=== PATIENT | female | born 1995 | race African-American/Black ===

== ENCOUNTER 2017-02-17 19:50 | Emergency (ER) | payer MEDICAID ==
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
[2017-02-17] MEDS ORDERED: Bacitracin Oint 1 GM U/D Packet TOP ONE (20:46)
[2017-02-17 22:44] VITALS: BP 135/82
--- NOTE | 2017-02-18 12:33 | CT ---
EXAM DATE: 02/17/17 PATIENT'S AGE: 21 Patient: ODIN BEEBE Facility: [place], [place] Site . Site : 1995 Study: CT Facial [id number]/8/2017 8:54:32 PM Ordering Physician: Vineet Silva Final Report: INDICATION: injury Technique: Unenhanced maxillofacial CT with reformatted coronals and sagittal images. Comparison: None Findings: The bone mineralization is unremarkable. Minimally depressed comminuted nasal bone fracture. Scattered opacification of the paranasal sinuses. The mastoid air cells are clear. The ostiomeatal units are occluded. The temporomandibular joints are unremarkable bilaterally. The globes and orbits are unremarkable. Impression: Minimally depressed comminuted nasal bone fracture. Dictated by: Naldo Flores MD @ 02/17/2017 21:20:02 (Electronic Signature) Report Signed by Proxy. MARU
--- NOTE | 2017-02-18 12:34 | CR ---
EXAM DATE: 02/17/17 PATIENT'S AGE: 21 Patient: ODIN BEEBE Facility: [place], [place] Site . Site : 1995 Study: XRay Extremity hand [id number]/8/2017 9:13:30 PM Ordering Physician: Vineet Silva Final Report: INDICATION: Right hand Injury. No additional clinical signs or symptoms. TECHNIQUE: Right Hand radiograph 3 views COMPARISON: None FINDINGS: Bones: Alignment is normal. No acute fractures or aggressive osseous lesions seen. Joint spaces: The carpal and metacarpal-phalangeal joints are unremarkable in appearance. The interphalangeal joints are normal in appearance. Soft tissues: Unremarkable. No radiopaque foreign bodies are noted. IMPRESSION: 1. No acute osseous injuries are identified. Dictated by Wilfrid Mike MD @ 02/17/2017 9:37:12 PM Dictated by: Wilfrid Mike MD @ 02/17/2017 21:37:18 (Electronic Signature) Report Signed by Proxy. MARU
--- NOTE | 2017-02-18 12:35 | CR ---
EXAM DATE: 02/17/17 PATIENT'S AGE: 21 Patient: ODNI BEEBE Facility: [place], [place] Site . Site : 1997 Study: XRay Extremity wrist [id number]/8/2017 9:13:47 PM Ordering Physician: Vineet Silva Final Report: INDICATION: Right wrist injury. TECHNIQUE: Wrist radiograph 5 views COMPARISON: None FINDINGS: Bones: There is normal alignment of the osseous structures with preservation of the carpal rows. No acute fractures or aggressive bone lesions are identified. Joint spaces: The radiocarpal, carpal, and carpometacarpal joints are unremarkable in appearance. Soft tissues: Unremarkable. No radiopaque foreign bodies are noted. IMPRESSION: 1. Negative right wrist series. Dictated by Wilfrid Mike MD @ 02/17/2017 9:38:46 PM Dictated by: Wilfrid Mike MD @ 02/17/2017 21:38:52 (Electronic Signature) Report Signed by Proxy. [facility] HOSPITALZenaida
== END 2017-02-17 22:25 | disposition home or self-care (01) ==
LOC: MW.ED 19:50
DX: S02.2XXA Fracture of nasal bones, initial encounter for closed fracture (principal); S50.312A Abrasion of left elbow, initial encounter; S80.212A Abrasion, left knee, initial encounter; S09.93XA Unspecified injury of face, initial encounter; T14.8 Other injury of unspecified body region; R04.0 Epistaxis; Y04.0XXA Assault by unarmed brawl or fight, initial encounter
CPT/HCPCS: 70486; 73110; 73130; 99284; A4566; 99283

== ENCOUNTER 2018-02-07 10:43 | Emergency (ER) | payer MEDICAID ==
[2018-02-07] MEDS ORDERED: Proparacaine 0.5% Ophth Soln 15 ML Bottle EYELF ONE (11:01)
[2018-02-07 11:10] VITALS: BP 112/67
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
== END 2018-02-07 11:45 | disposition home or self-care (01) ==
LOC: MW.ED 10:43
DX: S05.02XA Injury of conjunctiva and corneal abrasion without foreign body, left eye, initial encounter (principal); W45.8XXA Other foreign body or object entering through skin, initial encounter; F17.210 Nicotine dependence, cigarettes, uncomplicated
CPT/HCPCS: 99283

== ENCOUNTER 2018-12-26 12:53 | Emergency (ER) | payer OTHER, SELFPAY ==
[2018-12-26] MEDS ORDERED: Lidocaine 2% Viscous Solution 15 ML Cup PO ONE (13:15)
[2018-12-26] MEDS ORDERED: Benzocaine 20% Topical Spray UD MUCMEM ONE (13:15)
--- NOTE | 2018-12-26 13:15 | EDM.PDOC ---
ED HPI GENERAL MEDICAL PROBLEM - General Chief Complaint: ENT Problem Stated Complaint: TOOTH ACHE Time Seen by Provider: 12/26/18 12:55 Source of Information: Reports: Patient History Limitations: Reports: No Limitations - History of Present Illness INITIAL COMMENTS - FREE TEXT/NARRATIVE: HISTORY AND PHYSICAL: History of present illness: Patient is a 23-year-old female who presents to the emergency room with complaints of right posterior dental pain. She said she has had this intermittently over the past 2 years. Over the past couple days the pain has flared up and has tenderness to the gumline which radiates to the jaw. She denies any fever, chills, chest pain, shortness of breath or cough. Denies any GI or symptoms. She has been able to eat and drink appropriately. Review of systems: As per history of present illness and below otherwise all systems reviewed and negative. Past medical history: As per history of present illness and as reviewed below otherwise noncontributory. Surgical history: As per history of present illness and as reviewed below otherwise noncontributory. Social history: See social history for further information Family history: As per history of present illness and as reviewed below otherwise noncontributory. Physical exam: General: Well-developed and well-nourished 23-year-old -[place] female. Alert and oriented. Nontoxic appearing and in no acute distress. HEENT: Atraumatic, normocephalic, pupils equal and reactive bilaterally, negative for conjunctival pallor or scleral icterus, mucous membranes moist, TMs normal bilaterally, throat clear, patient has dental decay at #30 and 31 with mild erythema, neck supple, nontender, trachea midline. No drooling or trismus noted. No meningeal signs. No hot potato voice noted. Lungs: Clear to auscultation, breath sounds equal bilaterally, chest nontender. Heart: S1S2, regular rate and rhythm without overt murmur Abdomen: Soft, nondistended, nontender. Negative for masses or hepatosplenomegaly. Negative for costovertebral tenderness. Pelvis: Stable nontender. Genitourinary: Deferred. Rectal: Deferred. Skin: Intact, warm, dry. No lesions or rashes noted. Extremities: Atraumatic, negative for cords or calf pain. Neurovascular unremarkable. Neuro: Awake, alert, oriented. Cranial nerves II through XII unremarkable. Cerebellum unremarkable. Motor and sensory unremarkable throughout. Exam nonfocal. Diagnostics: None Therapeutics: Dental Balls Prescription: Augmentin Impression: Dentalgia Dental Decay Plan: 1. Please take the antibiotic as prescribed. 2. Tylenol and/or ibuprofen as needed for pain management. "Tooth Balls" have been given to you; apply along the gumline every 2-3 hours as needed. Do not swallow these; external use only. 3. Follow-up with a dentist for definitive care. Return to the ED as needed and as discussed. Definitive disposition and diagnosis as appropriate pending reevaluation and review of above. Left Jaw Pain Score (Numeric/FACES): 10 - Related Data Allergies Allergy/AdvReac Type Severity Reaction Status Date / Time No Known Allergies Allergy Verified 12/26/18 13:04 Home Meds: Home Meds Ibuprofen 600 mg PO TID PRN 10 Days #30 tablet 09/11/18 [Rx] Amoxicillin/Clavulanate K [Augmentin 875-125 MG] 1 tab PO BID 10 Days #20 tablet 12/26/18 [Rx] Past Medical History HEENT History: Reports: None Cardiovascular History: Reports: None Respiratory History: Reports: None Gastrointestinal History: Reports: None Genitourinary History: Reports: Other (See Below) Other Genitourinary History: Kidney infection Psychiatric History: Reports: None Endocrine/Metabolic History: Reports: None Dermatologic History: Reports: None - Infectious Disease History Infectious Disease History: Reports: None - Past Surgical History HEENT Surgical History: Reports: None Cardiovascular Surgical History: Reports: None Female Surgical History: Reports: None Social & Family History - Family History Family Medical History: Noncontributory Psychiatric: Reports: None - Tobacco Use Smoking Status *Q: Current Some Day Smoker Years of Tobacco use: 1 Packs/Tins Daily: 1 - Caffeine Use Caffeine Use: Reports: Coffee, Soda - Recreational Drug Use Recreational Drug Use: No ED ROS ENT - Review of Systems Review Of Systems: ROS reveals no pertinent complaints other than HPI. ED EXAM, ENT - Physical Exam Exam: See Below (See dictation) Course - Vital Signs Last Recorded V/S: Last Vital Signs Temp 97.6 F 12/26/18 13:05 Pulse 69 12/26/18 13:05 Resp 18 12/26/18 13:05 BP 122/72 12/26/18 13:05 Pulse Ox 98 12/26/18 13:05 - Orders/Labs/Meds Meds: Medications Discontinued Medications Generic Name Dose Route Start Last Admin Trade Name Bryanna PRN Reason Stop Dose Admin Benzocaine 2 each 12/26/18 13:15 Hurricaine One 20% MUCMEM 12/26/18 13:16 ONETIME ONE Lidocaine HCl 15 ml 12/26/18 13:15 Xylocaine 2% Viscous PO 12/26/18 13:16 ONETIME ONE Departure - Departure Time of Disposition: 13:19 Disposition: Home, Self-Care 01 Clinical Impression: Dental decay, Dentalgia - Discharge Information Prescriptions: Amoxicillin/Clavulanate K [Augmentin 875-125 MG] 1 tab PO BID 10 Days #20 tablet Referrals: PCP,None [Primary Care Provider] - Forms: ED Department Discharge Additional Instructions: The following information is given to patients seen in the emergency department who are being discharged to home. This information is to outline your options for follow-up care. We provide all patients seen in our emergency department with a follow-up referral. The need for follow-up, as well as the timing and circumstances, are variable depending upon the specifics of your emergency department visit. If you don't have a primary care physician on staff, we will provide you with a referral. We always advise you to contact your personal physician following an emergency department visit to inform them of the circumstance of the visit and for follow-up with them and/or the need for any referrals to a consulting specialist. The emergency department will also refer you to a specialist when appropriate. This referral assures that you have the opportunity for follow-up care with a specialist. All of these measure are taken in an effort to provide you with optimal care, which includes your follow-up. Under all circumstances we always encourage you to contact your private physician who remains a resource for coordinating your care. When calling for follow-up care, please make the office aware that this follow-up is from your recent emergency room visit. If for any reason you are refused follow-up, please contact the [facility] Emergency Department at and asked to speak to the emergency department charge nurse. [facility] [address] [place] [id number] [facility] [address] [place] [id number] 1. Please take the antibiotic as prescribed. 2. Tylenol and/or ibuprofen as needed for pain management. "Tooth Balls" have been given to you; apply along the gumline every 2-3 hours as needed. Do not swallow these; external use only. 3. Follow-up with a dentist for definitive care. Return to the ED as needed and as discussed.
[2018-12-26 13:33] VITALS: BP 122/70
== END 2018-12-26 13:33 | disposition home or self-care (01) ==
LOC: MW.ED 12:53
DX: K02.9 Dental caries, unspecified (principal); F17.210 Nicotine dependence, cigarettes, uncomplicated
CPT/HCPCS: 99283; A9270

== ENCOUNTER 2018-12-29 13:40 | Emergency (ER) | payer OTHER ==
[2018-12-29] MEDS ORDERED: Sodium Chloride 0.9% 2.5 ML Syringe FLUSH PRN (14:15)
[2018-12-29] MEDS ORDERED: Sodium Chloride 0.9% 10 ML Syringe FLUSH PRN (14:15)
[2018-12-29] MEDS ORDERED: Ketorolac 30 MG/ML SDV IVPUSH ONE (14:17)
--- NOTE | 2018-12-29 14:24 | EDM.PDOC ---
ED HPI GENERAL MEDICAL PROBLEM - General Chief Complaint: General Stated Complaint: COUGH Time Seen by Provider: 12/29/18 13:48 Source of Information: Reports: Patient History Limitations: Reports: No Limitations - History of Present Illness INITIAL COMMENTS - FREE TEXT/NARRATIVE: HISTORY AND PHYSICAL: History of present illness: Patient is a 23-year-old female who presents to the ED today with concerns of cough, sore throat, and abdominal pain. Patient states that for the past 2-3 days she has developed a cough. She states that she was not initially concerned about her cough, assuming it was a typical upper respiratory infection. She states that yesterday she started developing lower abdominal pain that she rates a 9/10 and affected her ability to sleep. She describes the abdominal pain as crampy and comes and goes. She states the pain is worse with movement or pressing on her abdomen. She states she did have her last menstrual cycle 1 week ago and it was normal for her. She states she is not on control and is sexually active. Patient states she has not checked a temperature at home but does feel as if she's had fevers off and on. Patient states she has had several episodes of watery diarrhea. She states her last episode was this morning. Patient denies nausea, vomiting, shortness of breath, difficulties breathing, nasal congestion, ear pain, skin rashes, burning with urination, vaginal discharge, or all other GI, , cardiovascular, or respiratory concerns. Patient does have a history of urinary tract infection but denies any other health history. Review of systems: As per history of present illness and below otherwise all systems reviewed and negative. Past medical history: As per history of present illness and as reviewed below otherwise noncontributory. Surgical history: As per history of present illness and as reviewed below otherwise noncontributory. Social history: See social history for further information Family history: As per history of present illness and as reviewed below otherwise noncontributory. Physical exam: General: Patient is alert, oriented, and in no acute distress. She is laying comfortably on exam table. HEENT: Atraumatic, normocephalic, pupils equal and reactive bilaterally, negative for conjunctival pallor or scleral icterus, mucous membranes moist, TMs normal bilaterally, throat clear, neck supple, nontender, trachea midline. No drooling or trismus noted. No meningeal signs. No hot potato voice noted. Lungs: Clear to auscultation, breath sounds equal bilaterally, chest nontender. Heart: S1S2, regular rate and rhythm without overt murmur Abdomen: Severe tenderness to palpation of the generalized lower abdomen with some guarding. Bowel sounds present throughout all quadrants. Otherwise, soft, nondistended. Negative for masses or hepatosplenomegaly. Negative for costovertebral tenderness. Pelvis: Stable nontender. Genitourinary: Deferred. Rectal: Deferred. Skin: Intact, warm, dry. No lesions or rashes noted. Extremities: Atraumatic, negative for cords or calf pain. Neurovascular unremarkable. Neuro: Awake, alert, oriented. Cranial nerves II through XII unremarkable. Cerebellum unremarkable. Motor and sensory unremarkable throughout. Exam nonfocal. Notes: On exam, patient does have significant tenderness to palpation of the lower abdomen. We'll do lab work and imaging today. Abdomen and pelvis CT shows no acute findings. There is mild patchy infiltrate within the left lung base. A developing pneumonia could not be excluded. Chest x-ray shows no acute cardiopulmonary process. However due to the CT finding of a developing potential pneumonia will treat accordingly this. Rest of labs today are reassuring. Patient was unable to leave a stool sample while in the ER today. She was sent home with supplies to collect this at home and return when she is able to provide a stool sample. Supportive care measures were reviewed and discussed. Voices understanding and is agreeable to plan of care. Denies any further questions or concerns at this time. Diagnostics: CBC, CMP, influenza, strep, chest x-ray, UA, urine hCG, abdominal pelvic CT, lipase, stool studies, cdiff Therapeutics: Toradol Prescription: Azithromycin Impression: Pneumonia, left lung base Plan: 1. Take medication as prescribed. 2. You can alternate ibuprofen and Tylenol as directed for pain and discomfort. 3. Follow-up with your primary care provider as discussed. 4. Return to the ED as needed and as discussed. Definitive disposition and diagnosis as appropriate pending reevaluation and review of above. Generalized Pain Score (Numeric/FACES): 8 - Related Data Allergies Allergy/AdvReac Type Severity Reaction Status Date / Time No Known Allergies Allergy Verified 12/29/18 13:52 Home Meds: Home Meds Ibuprofen 600 mg PO TID PRN 10 Days #30 tablet 09/11/18 [Rx] Amoxicillin/Clavulanate K [Augmentin 875-125 MG] 1 tab PO BID 10 Days #20 tablet 12/26/18 [Rx] Past Medical History HEENT History: Reports: None Cardiovascular History: Reports: None Respiratory History: Reports: None Gastrointestinal History: Reports: None Genitourinary History: Reports: Other (See Below) Other Genitourinary History: Kidney infection Psychiatric History: Reports: None Endocrine/Metabolic History: Reports: None Dermatologic History: Reports: None - Infectious Disease History Infectious Disease History: Reports: None - Past Surgical History HEENT Surgical History: Reports: None Cardiovascular Surgical History: Reports: None Female Surgical History: Reports: None Social & Family History - Family History Family Medical History: Noncontributory Psychiatric: Reports: None - Tobacco Use Smoking Status *Q: Current Every Day Smoker Years of Tobacco use: 2 Packs/Tins Daily: 0.5 - Caffeine Use Caffeine Use: Reports: Energy Drinks - Recreational Drug Use Recreational Drug Use: Yes Recreational Drug Type: Reports: Marijuana/Hashish Other Recreational Drug Type: 12/27/2018 ED ROS GENERAL - Review of Systems Review Of Systems: ROS reveals no pertinent complaints other than HPI. ED EXAM, GENERAL - Physical Exam Exam: See Below (see dictation) Course - Vital Signs Last Recorded V/S: Last Vital Signs Temp 98.8 F 12/29/18 13:53 Pulse Resp 16 12/29/18 15:43 BP 133/88 12/29/18 15:43 Pulse Ox 98 12/29/18 15:43 - Orders/Labs/Meds Orders: Active Orders 24 hr Category Date Time Status CDIFF TOX A+B [OP] Stat Lab 12/29/18 14:16 Ordered CULTURE STOOL + CAMPY+SHIGATOX [RM] Stat Lab 12/29/18 14:16 Ordered CULTURE STREP A CONFIRMATION [RM] Stat Lab 12/29/18 14:30 Results OVA & PARASITES BY IMMUNOASSAY [MREF] Stat Lab 12/29/18 14:16 Ordered STREP SCRN A RAPID W CULT CONF [RM] Stat Lab 12/29/18 14:30 Results Sodium Chloride 0.9% [Saline Flush] Med 12/29/18 14:15 Active 10 ml FLUSH ASDIRECTED PRN Sodium Chloride 0.9% [Saline Flush] Med 12/29/18 14:15 Active 2.5 ml FLUSH ASDIRECTED PRN Saline Lock Insert [OM.PC] Stat Oth 12/29/18 14:15 Ordered Medication Orders Sodium Chloride (Saline Flush) 10 ml FLUSH ASDIRECTED PRN PRN Reason: Keep Vein Open Sodium Chloride (Saline Flush) 2.5 ml FLUSH ASDIRECTED PRN PRN Reason: Keep Vein Open Labs: Laboratory Tests 12/29/18 12/29/18 12/29/18 Range/Units 14:26 14:26 14:26 WBC 7.08 (4.0-11.0) K/uL RBC 4.64 (4.30-5.90) M/uL Hgb 13.0 (12.0-16.0) g/dL Hct 38.7 (36.0-46.0) % MCV 83.4 (80.0-98.0) fL MCH 28.0 (27.0-32.0) pg MCHC 33.6 (31.0-37.0) g/dL RDW Std Deviation 39.0 (28.0-62.0) fl RDW Coeff of Allan 13 (11.0-15.0) % Plt Count 105 L (150-400) K/uL MPV 10.80 (7.40-12.00) fL Neut % (Auto) 85.4 H (48.0-80.0) % Lymph % (Auto) 6.2 L (16.0-40.0) % [place] % (Auto) 8.3 (0.0-15.0) % Eos % (Auto) 0.0 (0.0-7.0) % Baso % (Auto) 0.1 (0.0-1.5) % Neut # (Auto) 6.0 H (1.4-5.7) K/uL Lymph # (Auto) 0.4 L (0.6-2.4) K/uL [place] # (Auto) 0.6 (0.0-0.8) K/uL Eos # (Auto) 0.0 (0.0-0.7) K/uL Baso # (Auto) 0.0 (0.0-0.1) K/uL Nucleated RBC % 0.0 /100WBC Nucleated RBCs # 0 K/uL Sodium 139 (136-145) mmol/L Potassium 3.6 (3.5-5.1) mmol/L Chloride 105 (98-107) mmol/L Carbon Dioxide 21.6 (21.0-32.0) mmol/L BUN 9 (7.0-18.0) mg/dL Creatinine 0.8 (0.6-1.0) mg/dL Est Cr Clr Drug Dosing 92.02 mL/min Estimated GFR (MDRD) > 60.0 ml/min Glucose 95 (74-106) mg/dL Calcium 8.8 (8.5-10.1) mg/dL Total Bilirubin 0.3 (0.2-1.0) mg/dL AST 20 (15-37) IU/L ALT 25 (14-63) IU/L Alkaline Phosphatase 42 L (46-116) U/L Total Protein 7.4 (6.4-8.2) g/dL Albumin 3.6 (3.4-5.0) g/dL Globulin 3.8 (2.6-4.0) g/dL Albumin/Globulin Ratio 0.9 (0.9-1.6) Lipase 111 (73-393) U/L Urine Color Urine Appearance Urine pH (5.0-8.0) Ur Specific Rombauer (1.001-1.035) Urine Protein (NEGATIVE) mg/dL Urine Glucose (UA) (NEGATIVE) mg/dL Urine Ketones (NEGATIVE) mg/dL Urine Occult Blood (NEGATIVE) Urine Nitrite (NEGATIVE) Urine Bilirubin (NEGATIVE) Urine Urobilinogen (<2.0) EU/dL Ur Leukocyte Esterase (NEGATIVE) Urine HCG, Qual (NEGATIVE) 12/29/18 12/29/18 Range/Units 14:30 14:30 WBC (4.0-11.0) K/uL RBC (4.30-5.90) M/uL Hgb (12.0-16.0) g/dL Hct (36.0-46.0) % MCV (80.0-98.0) fL MCH (27.0-32.0) pg MCHC (31.0-37.0) g/dL RDW Std Deviation (28.0-62.0) fl RDW Coeff of Allan (11.0-15.0) % Plt Count (150-400) K/uL MPV (7.40-12.00) fL Neut % (Auto) (48.0-80.0) % Lymph % (Auto) (16.0-40.0) % [place] % (Auto) (0.0-15.0) % Eos % (Auto) (0.0-7.0) % Baso % (Auto) (0.0-1.5) % Neut # (Auto) (1.4-5.7) K/uL Lymph # (Auto) (0.6-2.4) K/uL [place] # (Auto) (0.0-0.8) K/uL Eos # (Auto) (0.0-0.7) K/uL Baso # (Auto) (0.0-0.1) K/uL Nucleated RBC % /100WBC Nucleated RBCs # K/uL Sodium (136-145) mmol/L Potassium (3.5-5.1) mmol/L Chloride (98-107) mmol/L Carbon Dioxide (21.0-32.0) mmol/L BUN (7.0-18.0) mg/dL Creatinine (0.6-1.0) mg/dL Est Cr Clr Drug Dosing mL/min Estimated GFR (MDRD) ml/min Glucose (74-106) mg/dL Calcium (8.5-10.1) mg/dL Total Bilirubin (0.2-1.0) mg/dL AST (15-37) IU/L ALT (14-63) IU/L Alkaline Phosphatase (46-116) U/L Total Protein (6.4-8.2) g/dL Albumin (3.4-5.0) g/dL Globulin (2.6-4.0) g/dL Albumin/Globulin Ratio (0.9-1.6) Lipase (73-393) U/L Urine Color YELLOW Urine Appearance CLEAR Urine pH 7.0 (5.0-8.0) Ur Specific Rombauer 1.010 (1.001-1.035) Urine Protein NEGATIVE (NEGATIVE) mg/dL Urine Glucose (UA) NEGATIVE (NEGATIVE) mg/dL Urine Ketones 15 H (NEGATIVE) mg/dL Urine Occult Blood NEGATIVE (NEGATIVE) Urine Nitrite NEGATIVE (NEGATIVE) Urine Bilirubin NEGATIVE (NEGATIVE) Urine Urobilinogen 0.2 (<2.0) EU/dL Ur Leukocyte Esterase NEGATIVE (NEGATIVE) Urine HCG, Qual NEGATIVE (NEGATIVE) Meds: Medications Generic Name Dose Route Start Last Admin Trade Name Freq PRN Reason Stop Dose Admin Sodium Chloride 10 ml 12/29/18 14:15 Saline Flush FLUSH ASDIRECTED PRN Keep Vein Open Sodium Chloride 2.5 ml 12/29/18 14:15 Saline Flush FLUSH ASDIRECTED PRN Keep Vein Open Discontinued Medications Generic Name Dose Route Start Last Admin Trade Name Freq PRN Reason Stop Dose Admin Ketorolac Tromethamine 30 mg 12/29/18 14:17 12/29/18 14:39 Toradol IVPUSH 12/29/18 14:18 30 mg ONETIME ONE Administration Departure - Departure Time of Disposition: 16:24 Disposition: Home, Self-Care 01 Clinical Impression: Pneumonia Qualifiers: Pneumonia type: due to unspecified organism Laterality: left Lung location: lower lobe of lung Qualified Code(s): J18.1 - Lobar pneumonia, unspecified organism - Discharge Information Instructions: Community-Acquired Pneumonia, Adult, [id number] Referrals: PCP,None [Primary Care Provider] - Forms: ED Department Discharge Additional Instructions: The following information is given to patients seen in the emergency department who are being discharged to home. This information is to outline your options for follow-up care. We provide all patients seen in our emergency department with a follow-up referral. The need for follow-up, as well as the timing and circumstances, are variable depending upon the specifics of your emergency department visit. If you don't have a primary care physician on staff, we will provide you with a referral. We always advise you to contact your personal physician following an emergency department visit to inform them of the circumstance of the visit and for follow-up with them and/or the need for any referrals to a consulting specialist. The emergency department will also refer you to a specialist when appropriate. This referral assures that you have the opportunity for follow-up care with a specialist. All of these measure are taken in an effort to provide you with optimal care, which includes your follow-up. Under all circumstances we always encourage you to contact your private physician who remains a resource for coordinating your care. When calling for follow-up care, please make the office aware that this follow-up is from your recent emergency room visit. If for any reason you are refused follow-up, please contact the [facility] Emergency Department at and asked to speak to the emergency department charge nurse. [facility] [address] [place] [address] [facility] [address] [place] [id number] 1. Take medication as prescribed. 2. You can alternate ibuprofen and Tylenol as directed for pain and discomfort. 3. Follow-up with your primary care provider as discussed. 4. Return to the ED as needed and as discussed. - My Orders Last 24 Hours: My Active Orders 12/29/18 14:15 Sodium Chloride 0.9% [Saline Flush] 10 ml FLUSH ASDIRECTED PRN Sodium Chloride 0.9% [Saline Flush] 2.5 ml FLUSH ASDIRECTED PRN Saline Lock Insert [OM.PC] Stat 12/29/18 14:16 CDIFF TOX A+B [OP] Stat CULTURE STOOL + CAMPY+SHIGATOX [RM] Stat OVA & PARASITES BY IMMUNOASSAY [MREF] Stat 12/29/18 14:30 CULTURE STREP A CONFIRMATION [RM] Stat STREP SCRN A RAPID W CULT CONF [] Stat - Assessment/Plan Last 24 Hours: My Active Orders 12/29/18 14:15 Sodium Chloride 0.9% [Saline Flush] 10 ml FLUSH ASDIRECTED PRN Sodium Chloride 0.9% [Saline Flush] 2.5 ml FLUSH ASDIRECTED PRN Saline Lock Insert [OM.PC] Stat 12/29/18 14:16 CDIFF TOX A+B [OP] Stat CULTURE STOOL + CAMPY+SHIGATOX [RM] Stat OVA & PARASITES BY IMMUNOASSAY [MREF] Stat 12/29/18 14:30 CULTURE STREP A CONFIRMATION [RM] Stat STREP SCRN A RAPID W CULT CONF [] Stat
[2018-12-29 15:05] LABS: CHLORIDE,CL 105 mmol/L (98-107); SODIUM,NA 139 mmol/L (136-145)
[2018-12-29 15:44] VITALS: BP 133/88
--- NOTE | 2018-12-29 16:04 | CR ---
EXAMINATION: Two-view chest (PA and Lateral views). HISTORY: Cough. FINDINGS: The trachea is midline. The cardiomediastinal silhouette is within normal limits. No pulmonary infiltrates, effusions or pneumothorax. Osseous structures appear unremarkable. IMPRESSION: No acute cardiopulmonary process.
--- NOTE | 2018-12-29 16:09 | CT ---
CT of the abdomen and pelvis without contrast. HISTORY: Pain TECHNIQUE: Axial CT images were obtained of the abdomen and pelvis without contrast. Coronal and sagittal reconstructions obtained. FINDINGS: Small focal patchy infiltrate within the left lung base. The liver, spleen, adrenal glands, and pancreas appear unremarkable for noncontrast examination. The gallbladder appears normal. There is no bulky retroperitoneal lymphadenopathy. No abdominal ascites. There are no calcifications noted within the kidneys or along the courses of the ureters bilaterally. The large and small bowel are normal in caliber without evidence of obstruction. The appendix appears normal. There is no bulky pelvic lymphadenopathy. No free fluid. No free air. The urinary bladder appears normal. The visualized osseous structures appear normal. IMPRESSION: 1. No acute findings noted within the abdomen or pelvis. 2. Mild patchy infiltrate within the left lung base. A developing pneumonia is not excluded.
== END 2018-12-29 17:01 | disposition home or self-care (01) ==
LOC: MW.ED 13:40
DX: J18.1 Lobar pneumonia, unspecified organism (principal); F17.210 Nicotine dependence, cigarettes, uncomplicated
CPT/HCPCS: 36415; 71046; 74176; 80053; 81003; 81025; 83690; 85025; 87081; 87804; 87880; 96374; 99284; J1885

== ENCOUNTER 2019-01-27 21:50 | Emergency (ER) | payer OTHER ==
[2019-01-27] MEDS ORDERED: Ketorolac 60 MG/2 ML SDV IM ONE (22:02)
--- NOTE | 2019-01-27 22:06 | EDM.PDOC ---
ED HPI GENERAL MEDICAL PROBLEM - General Chief Complaint: ENT Problem Stated Complaint: TOOTHACHE Time Seen by Provider: 01/27/19 22:02 - History of Present Illness INITIAL COMMENTS - FREE TEXT/NARRATIVE: HISTORY AND PHYSICAL: History of present illness: Patient's 23-year-old female presents with a concern of dental pain she's been seen in the past for this was put on antibiotics but did not complete the antibiotics as prescribed she is in the process of trying to secure dental follow-up there's been no fever chills nausea vomiting or other complaints patient is generally poor dentition with multiple dental caries noted in gingival swelling and tenderness in the region of the right lower molars Review of systems: As per history of present illness and below otherwise all systems reviewed and negative. Past medical history: As per history of present illness and as reviewed below otherwise noncontributory. Surgical history: As per history of present illness and as reviewed below otherwise noncontributory. Social history: No reported history of drug or alcohol abuse. Family history: As per history of present illness and as reviewed below otherwise noncontributory. Physical exam: HEENT: Atraumatic, normocephalic, pupils reactive, negative for conjunctival pallor or scleral icterus, mucous membranes moist, throat clear, neck supple, nontender, trachea midline. Lungs: Clear to auscultation, breath sounds equal bilaterally, chest nontender. Heart: S1S2, regular, negative for clicks, rubs, or JVD. Abdomen: Soft, nondistended, nontender. Negative for masses or hepatosplenomegaly. Negative for costovertebral tenderness. Pelvis: Stable nontender. Genitourinary: Deferred. Rectal: Deferred. Extremities: Atraumatic, negative for cords or calf pain. Neurovascular unremarkable. Neuro: Awake, alert, oriented. Cranial nerves II through XII unremarkable. Cerebellum unremarkable. Motor and sensory unremarkable throughout. Exam nonfocal. Diagnostics: None Therapeutics: Toradol 60 mg IM Impression: #1 dentalgia #2 rule out dental abscess Definitive disposition and diagnosis as appropriate pending reevaluation and review of above. - Related Data Allergies Allergy/AdvReac Type Severity Reaction Status Date / Time No Known Allergies Allergy Verified 01/27/19 22:04 Home Meds: Home Meds Ibuprofen 600 mg PO TID PRN 10 Days #30 tablet 09/11/18 [Rx] Past Medical History HEENT History: Reports: None Cardiovascular History: Reports: None Respiratory History: Reports: None Gastrointestinal History: Reports: None Genitourinary History: Reports: Other (See Below) Other Genitourinary History: Kidney infection Psychiatric History: Reports: None Endocrine/Metabolic History: Reports: None Dermatologic History: Reports: None - Infectious Disease History Infectious Disease History: Reports: None - Past Surgical History HEENT Surgical History: Reports: None Cardiovascular Surgical History: Reports: None Female Surgical History: Reports: None Social & Family History - Family History Family Medical History: Noncontributory Psychiatric: Reports: None - Caffeine Use Caffeine Use: Reports: Energy Drinks ED ROS GENERAL - Review of Systems Review Of Systems: ROS reveals no pertinent complaints other than HPI. ED EXAM, GENERAL - Physical Exam Exam: See Below (See dictation) Course - Orders/Labs/Meds Orders: Active Orders 24 hr Category Date Time Status Ketorolac [Toradol] Med 01/27/19 22:02 Once 60 mg IM ONETIME ONE Departure - Departure Time of Disposition: 22:05 Disposition: Home, Self-Care 01 Condition: Good Clinical Impression: Dental decay, Dentalgia, Dental abscess - Discharge Information Additional Instructions: The following information is given to patients seen in the emergency department who are being discharged to home. This information is to outline your options for follow-up care. We provide all patients seen in our emergency department with a follow-up referral. The need for follow-up, as well as the timing and circumstances, are variable depending upon the specifics of your emergency department visit. If you don't have a primary care physician on staff, we will provide you with a referral. We always advise you to contact your personal physician following an emergency department visit to inform them of the circumstance of the visit and for follow-up with them and/or the need for any referrals to a consulting specialist. The emergency department will also refer you to a specialist when appropriate. This referral assures that you have the opportunity for followup care with a specialist. All of these measure are taken in an effort to provide you with optimal care, which includes your followup. Under all circumstances we always encourage you to contact your private physician who remains a resource for coordinating your care. When calling for followup care, please make the office aware that this follow-up is from your recent emergency room visit. If for any reason you are refused follow-up, please contact the [facility] emergency department at and asked to speak to the emergency department charge nurse. Ultram Augmentin as prescribed follow-up dentist as discussed return as needed as discussed - My Orders Last 24 Hours: My Active Orders 01/27/19 22:02 Ketorolac [Toradol] 60 mg IM ONETIME ONE - Assessment/Plan Last 24 Hours: My Active Orders 01/27/19 22:02 Ketorolac [Toradol] 60 mg IM ONETIME ONE
[2019-01-27 22:37] VITALS: BP 130/79
== END 2019-01-27 22:37 | disposition home or self-care (01) ==
LOC: MW.ED 21:50
DX: K04.7 Periapical abscess without sinus (principal); K02.9 Dental caries, unspecified
CPT/HCPCS: 96372; 99282; J1885; 99283

== ENCOUNTER 2019-03-26 11:05 | Emergency (ER) | payer OTHER ==
--- NOTE | 2019-03-26 11:27 | EDM.PDOC ---
ED HPI GENERAL MEDICAL PROBLEM - General Chief Complaint: Abdominal Pain Stated Complaint: STOMACH PAIN Time Seen by Provider: 03/26/19 11:15 Source of Information: Reports: Patient History Limitations: Reports: No Limitations - History of Present Illness INITIAL COMMENTS - FREE TEXT/NARRATIVE: History of present illness: []Patient is a G0 states she's had irregular menses for the last 10 days with intermittent heavy bleeding, associated with breast tenderness and she wants to know what's wrong with her. She denies any vaginal discharge, fevers, chills but has been having profuse sweating. Patient is unaware if she is , she does not use control or do a home test. She does not have a nitroglycerin distributor. She states she has no vaginal bleeding today. Review of systems: As per history of present illness and below otherwise all systems reviewed and negative. Past medical history: As per history of present illness and as reviewed below otherwise noncontributory. Surgical history: As per history of present illness and as reviewed below otherwise noncontributory. Social history: No reported history of drug or alcohol abuse. Family history: As per history of present illness and as reviewed below otherwise noncontributory. Physical exam: General: Well developed, well nourished in NAD HEENT: Atraumatic, normocephalic, pupils reactive, negative for conjunctival pallor or scleral icterus, mucous membranes moist, throat clear, neck supple, nontender, trachea midline. Lungs: Clear to auscultation, breath sounds equal bilaterally, chest nontender. Heart: S1S2, regular, negative for clicks, rubs, or JVD. Abdomen: NABS, Soft, nondistended, nontender. Negative for masses or hepatosplenomegaly. Negative for costovertebral tenderness. Pelvis: Stable nontender. Genitourinary: Deferred. Rectal: Deferred. Extremities: Atraumatic, negative for cords or calf pain. Neurovascular unremarkable. Neuro: Awake, alert, oriented. Cranial nerves II through XII unremarkable. Cerebellum unremarkable. Motor and sensory unremarkable throughout. Exam nonfocal. Skin:warm and dry Diagnostics: UA, uhCG positive, hCG Quant, Rh Therapeutics: None ED Course: Stable Impression: UTI, early , threatened Prescriptions: nitrofurantoin Plan: Follow-up women's health clinic Definitive disposition and diagnosis as appropriate pending reevaluation and review of above. Abdominal Pain Score (Numeric/FACES): 4 - Related Data Allergies Allergy/AdvReac Type Severity Reaction Status Date / Time No Known Allergies Allergy Verified 03/26/19 11:13 Home Meds: Home Meds Ibuprofen 600 mg PO TID PRN 10 Days #30 tablet 09/11/18 [Rx] Nitrofurantoin Macrocrystal [Macrodantin] 100 mg PO BID #14 capsule 03/26/19 [Rx ] Past Medical History HEENT History: Reports: None Cardiovascular History: Reports: None Respiratory History: Reports: None Gastrointestinal History: Reports: None Genitourinary History: Reports: Other (See Below) Other Genitourinary History: Kidney infection Psychiatric History: Reports: None Endocrine/Metabolic History: Reports: None Immunologic History: Reports: None Oncologic (Cancer) History: Reports: None Dermatologic History: Reports: None - Infectious Disease History Infectious Disease History: Reports: None - Past Surgical History Head Surgeries/Procedures: Reports: None HEENT Surgical History: Reports: None Cardiovascular Surgical History: Reports: None GI Surgical History: Reports: Hernia, Abdominal Female Surgical History: Reports: None Social & Family History - Family History Family Medical History: Noncontributory Psychiatric: Reports: None - Tobacco Use Smoking Status *Q: Never Smoker Second Hand Smoke Exposure: No - Caffeine Use Caffeine Use: Reports: None - Recreational Drug Use Recreational Drug Use: Yes Recreational Drug Type: Reports: Marijuana/Hashish Recreational Drug Use Frequency: Daily ED ROS GENERAL - Review of Systems Review Of Systems: ROS reveals no pertinent complaints other than HPI. ED EXAM, GI/ABD - Physical Exam Exam: See Below Course - Vital Signs Last Recorded V/S: Last Vital Signs Temp 96.5 F 03/26/19 11:13 Pulse 82 03/26/19 11:13 Resp 18 03/26/19 11:13 BP 129/77 03/26/19 11:13 Pulse Ox 98 03/26/19 11:13 - Orders/Labs/Meds Orders: Active Orders 24 hr Category Date Time Status OB Transvaginal [US] Stat Exams 03/26/19 12:11 Taken CULTURE URINE [RM] Routine Lab 03/26/19 11:25 Received Labs: Laboratory Tests 03/26/19 03/26/19 03/26/19 Range/Units 11:17 11:25 12:11 HCG, Quant 64377.0 mIU/mL Urine Color YELLOW Urine Appearance CLEAR Urine pH 7.0 (5.0-8.0) Ur Specific [place] 1.020 (1.001-1.035) Urine Protein 100 H (NEGATIVE) mg/dL Urine Glucose (UA) NEGATIVE (NEGATIVE) mg/dL Urine Ketones 40 H (NEGATIVE) mg/dL Urine Occult Blood NEGATIVE (NEGATIVE) Urine Nitrite POSITIVE H (NEGATIVE) Urine Bilirubin SMALL H (NEGATIVE) Urine Ictotest NEGATIVE Urine Urobilinogen 0.2 (<2.0) EU/dL Ur Leukocyte Esterase TRACE H (NEGATIVE) Urine RBC NONE SEEN (0-2/HPF) Urine WBC 6-8 (0-5/HPF) Ur Epithelial Cells MODERATE (NONE-FEW) Amorphous Sediment LIGHT (NEGATIVE) Urine Bacteria 3+ H (NEGATIVE) Urine Mucus MODERATE (NONE-MOD) Urine HCG, Qual POSITIVE (NEGATIVE) Blood Type 03/26/19 Range/Units 12:11 HCG, Quant mIU/mL Urine Color Urine Appearance Urine pH (5.0-8.0) Ur Specific [place] (1.001-1.035) Urine Protein (NEGATIVE) mg/dL Urine Glucose (UA) (NEGATIVE) mg/dL Urine Ketones (NEGATIVE) mg/dL Urine Occult Blood (NEGATIVE) Urine Nitrite (NEGATIVE) Urine Bilirubin (NEGATIVE) Urine Ictotest Urine Urobilinogen (<2.0) EU/dL Ur Leukocyte Esterase (NEGATIVE) Urine RBC (0-2/HPF) Urine WBC (0-5/HPF) Ur Epithelial Cells (NONE-FEW) Amorphous Sediment (NEGATIVE) Urine Bacteria (NEGATIVE) Urine Mucus (NONE-MOD) Urine HCG, Qual (NEGATIVE) Blood Type A POSITIVE Departure - Departure Time of Disposition: 13:07 Disposition: Home, Self-Care 01 Condition: Good Clinical Impression: Threatened UTI (urinary tract infection) Qualifiers: Urinary tract infection type: site unspecified Hematuria presence: without hematuria Qualified Code(s): N39.0 - Urinary tract infection, site not specified - Discharge Information *PRESCRIPTION DRUG MONITORING PROGRAM REVIEWED*: No *COPY OF PRESCRIPTION DRUG MONITORING REPORT IN PATIENT SEVERO: No Prescriptions: Nitrofurantoin Macrocrystal [Macrodantin] 100 mg PO BID #14 capsule Instructions: Threatened Miscarriage, [id number], and Urinary Tract Infection Referrals: PCP,None [Primary Care Provider] - Forms: ED Department Discharge Additional Instructions: The following information is given to patients seen in the emergency department who are being discharged to home. This information is to outline your options for follow-up care. We provide all patients seen in our emergency department with a follow-up referral. The need for follow-up, as well as the timing and circumstances, are variable depending upon the specifics of your emergency department visit. If you don't have a primary care physician on staff, we will provide you with a referral. We always advise you to contact your personal physician following an emergency department visit to inform them of the circumstance of the visit and for follow-up with them and/or the need for any referrals to a consulting specialist. The emergency department will also refer you to a specialist when appropriate. This referral assures that you have the opportunity for follow-up care with a specialist. All of these measure are taken in an effort to provide you with optimal care, which includes your follow-up. Under all circumstances we always encourage you to contact your private physician who remains a resource for coordinating your care. When calling for follow-up care, please make the office aware that this follow-up is from your recent emergency room visit. If for any reason you are refused follow-up, please contact the [facility] Emergency Department at and asked to speak to the emergency department charge nurse. [facility] Primary [facility] - Women[facility] [address] [place] [id number] - My Orders Last 24 Hours: My Active Orders 03/26/19 11:25 CULTURE URINE [RM] Routine 03/26/19 12:11 OB Transvaginal [US] Stat - Assessment/Plan Last 24 Hours: My Active Orders 03/26/19 11:25 CULTURE URINE [RM] Routine 03/26/19 12:11 OB Transvaginal [US] Stat
--- NOTE | 2019-03-26 13:19 | US ---
INDICATION: Pain and bleeding. TECHNIQUE: Ultrasound OB pelvis transvaginal. Real-time arias-scale imaging of the pelvis was performed. COMPARISON: None FINDINGS: There is an intrauterine gestational sac with a yolk sac and embryo. Clinical age of the fetus based on LMP is 5 weeks 5 days (JUAN 11/21/19). [place]-rump length is 3 millimeters which corresponds to 5 weeks 6 days and is within standard deviation of the clinical age. No cardiac activity is seen. Trace perigestational hypoechoic material measuring 3 millimeters, possibly a small perigestational bleed. Perigestational bleeds of this size are typically an incidental finding. Maternal right ovary measures 1.9 x 3.0 x 3.2 centimeters and contains a 1.5 centimeter corpus luteum for maternal left ovary measures 2.2 x 1.4 x 2.0 centimeters and is unremarkable. IMPRESSION: Single intrauterine gestation of uncertain viability. No cardiac activity is seen, however this can be due to the early gestational age. Miscarriage not excluded. Correlation with serial quantitative beta HCG and follow-up ultrasound in 7-10 days to reassess viability suggested. Dictated by Koko Bo MD @ Mar 26 2019 1:11PM Signed by Dr. Koko Bo @ Mar 26 2019 1:17PM
[2019-03-26 13:21] VITALS: BP 119/88
== END 2019-03-26 13:20 | disposition home or self-care (01) ==
LOC: MW.ED 11:05
DX: O20.0 Threatened abortion (principal); O23.41 Unspecified infection of urinary tract in pregnancy, first trimester; Z3A.01 Less than 8 weeks gestation of pregnancy
CPT/HCPCS: 36415; 76817; 76817-26; 81001; 81025; 84702; 86900; 86901; 87086; 87088; 87186; 99283; 99284-25

== ENCOUNTER 2019-04-18 14:11 | Emergency (ER) | payer MEDICAID ==
[2019-04-18] MEDS ORDERED: Benzocaine 20% Topical Spray UD MUCMEM ONE (14:32)
[2019-04-18] MEDS ORDERED: Lidocaine 2% Viscous Solution 15 ML Cup PO ONE (14:32)
--- NOTE | 2019-04-18 14:34 | EDM.PDOC ---
ED HPI GENERAL MEDICAL PROBLEM - General Chief Complaint: ENT Problem Stated Complaint: TOOTH ABSCESS RT SIDE,9 WKS PREG Time Seen by Provider: 04/18/19 14:29 Source of Information: Reports: Patient History Limitations: Reports: No Limitations - History of Present Illness INITIAL COMMENTS - FREE TEXT/NARRATIVE: HISTORY AND PHYSICAL: History of present illness: Patient is a 23-year-old female presents to the ED today with concern of a dental abscess that is worse and today. Patient states she had gone to [facility] and was using [id number]-[id number] numbing agents as well as put a temporary cap fell on her tooth. Patient states despite doing this, she is not able to get relief. Patient states she is approximately 9 weeks and had been told by her dentist that they could not do a root canal of the tooth being that she is . Patient follows with [facility] for her . Patient denies any other symptoms or concerns at this time. Patient denies fever, chills, chest pain, shortness of breath, or cough. Denies headache, neck stiff ness, change in vision, syncope, or near syncope. Denies nausea, vomiting, abdominal pain, diarrhea, constipation, or dysuria. Has not noted any blood in urine or stool. Patient has been eating and drinking appropriately. Review of systems: As per history of present illness and below otherwise all systems reviewed and negative. Past medical history: As per history of present illness and as reviewed below otherwise noncontributory. Surgical history: As per history of present illness and as reviewed below otherwise noncontributory. Social history: See social history for further information Family history: As per history of present illness and as reviewed below otherwise noncontributory. Physical exam: General: Patient is alert, oriented, and in no acute distress. Patient sitting comfortably on exam table. HEENT: Atraumatic, normocephalic, pupils equal and reactive bilaterally, negative for conjunctival pallor or scleral icterus, mucous membranes moist, TMs normal bilaterally, throat clear, neck supple, nontender, trachea midline. No drooling or trismus noted. No meningeal signs. No hot potato voice noted. Tooth number 31-32 are capped with temporary filling with mild edema surrounding the teeth. Pain with palpation. Generalized poor dentition. Lungs: Clear to auscultation, breath sounds equal bilaterally, chest nontender. Heart: S1S2, regular rate and rhythm without overt murmur Abdomen: Soft, nondistended, nontender. Negative for masses or hepatosplenomegaly. Negative for costovertebral tenderness. Pelvis: Stable nontender. Genitourinary: Deferred. Rectal: Deferred. Skin: Intact, warm, dry. No lesions or rashes noted. Extremities: Atraumatic, negative for cords or calf pain. Neurovascular unremarkable. Neuro: Awake, alert, oriented. Cranial nerves II through XII unremarkable. Cerebellum unremarkable. Motor and sensory unremarkable throughout. Exam nonfocal. Notes: Discussed the importance for follow-up with the dentist as well as her [employer]. Voices understanding and is agreeable to plan of care. Denies any further questions or concerns at this time. Diagnostics: None Therapeutics: Dental balls Prescription: Amoxicillin Impression: Dental abscess Plan: 1. Please take medication as prescribed. 2. Tylenol as directed and as needed for pain management as this is safe in . 3. "Tooth Balls" have been given to you; apply along the gumline every 2-3 hours as needed. Do not swallow these; external use only. 4. Follow-up with a dentist and OBGYN for definitive care. Return to the ED as needed and as discussed. Definitive disposition and diagnosis as appropriate pending reevaluation and review of above. - Related Data Allergies Allergy/AdvReac Type Severity Reaction Status Date / Time No Known Allergies Allergy Verified 03/26/19 11:13 Home Meds: Home Meds Ibuprofen 600 mg PO TID PRN 10 Days #30 tablet 09/11/18 [Rx] Nitrofurantoin Macrocrystal [Macrodantin] 100 mg PO BID #14 capsule 03/26/19 [Rx ] Past Medical History HEENT History: Reports: None Cardiovascular History: Reports: None Respiratory History: Reports: None Gastrointestinal History: Reports: None Genitourinary History: Reports: Other (See Below) Other Genitourinary History: Kidney infection Psychiatric History: Reports: None Endocrine/Metabolic History: Reports: None Immunologic History: Reports: None Oncologic (Cancer) History: Reports: None Dermatologic History: Reports: None - Infectious Disease History Infectious Disease History: Reports: None - Past Surgical History Head Surgeries/Procedures: Reports: None HEENT Surgical History: Reports: None Cardiovascular Surgical History: Reports: None GI Surgical History: Reports: Hernia, Abdominal Female Surgical History: Reports: None Social & Family History - Family History Family Medical History: Noncontributory Psychiatric: Reports: None - Caffeine Use Caffeine Use: Reports: None ED ROS GENERAL - Review of Systems Review Of Systems: ROS reveals no pertinent complaints other than HPI. ED EXAM, GENERAL - Physical Exam Exam: See Below (see dictation) Course - Orders/Labs/Meds Meds: Medications Discontinued Medications Generic Name Dose Route Start Last Admin Trade Name Bryanna PRN Reason Stop Dose Admin Benzocaine 2 each 04/18/19 14:32 Hurricaine One 20% MUCMEM 04/18/19 14:33 ONETIME ONE Lidocaine HCl 15 ml 04/18/19 14:32 Xylocaine 2% Viscous PO 04/18/19 14:33 ONETIME ONE Departure - Departure Time of Disposition: 14:49 Disposition: Home, Self-Care 01 Clinical Impression: Dental abscess - Discharge Information Referrals: Miriam Stevens MD [Primary Care Provider] - Forms: ED Department Discharge Additional Instructions: The following information is given to patients seen in the emergency department who are being discharged to home. This information is to outline your options for follow-up care. We provide all patients seen in our emergency department with a follow-up referral. The need for follow-up, as well as the timing and circumstances, are variable depending upon the specifics of your emergency department visit. If you don't have a primary care physician on staff, we will provide you with a referral. We always advise you to contact your personal physician following an emergency department visit to inform them of the circumstance of the visit and for follow-up with them and/or the need for any referrals to a consulting specialist. The emergency department will also refer you to a specialist when appropriate. This referral assures that you have the opportunity for follow-up care with a specialist. All of these measure are taken in an effort to provide you with optimal care, which includes your follow-up. Under all circumstances we always encourage you to contact your private physician who remains a resource for coordinating your care. When calling for follow-up care, please make the office aware that this follow-up is from your recent emergency room visit. If for any reason you are refused follow-up, please contact the [facility] Emergency Department at and asked to speak to the emergency department charge nurse. [facility] [address] [place] [address] [facility] [address] [place] [address] 1. Please take medication as prescribed. 2. Tylenol as directed and as needed for pain management as this is safe in . 3. "Tooth Balls" have been given to you; apply along the gumline every 2-3 hours as needed. Do not swallow these; external use only. 4. Follow-up with a dentist and OBGYN for definitive care. Return to the ED as needed and as discussed.
[2019-04-18 17:07] VITALS: BP 116/76
== END 2019-04-18 15:11 | disposition home or self-care (01) ==
LOC: MW.ED 14:11
DX: O99.611 Diseases of the digestive system complicating pregnancy, first trimester (principal); K04.7 Periapical abscess without sinus; Z3A.09 9 weeks gestation of pregnancy
CPT/HCPCS: 99282; A9270; 99283

== ENCOUNTER 2019-11-09 12:17 | Inpatient (IN) | payer MEDICAID ==
[2019-11-09] MEDS ORDERED: Lidocaine 1% 50 ML MDV INJECT PRN (21:36)
[2019-11-09] MEDS ORDERED: Nalbuphine 10 MG/1 ML Vial IVPUSH PRN (21:36)
[2019-11-09] MEDS ORDERED: Terbutaline 1 MG/ML SDV SUBCUT PRN (21:36)
[2019-11-09] MEDS ORDERED: Water For Irrigation,Sterile 1,000 ML Container IRR PRN (21:36)
[2019-11-09] MEDS ORDERED: Misoprostol 200 MCG Tab PO PRN (21:36)
[2019-11-09] MEDS ORDERED: Sodium Chloride 0.9% 10 ML Syringe FLUSH PRN (21:36)
[2019-11-09] MEDS ORDERED: Carboprost Tromethamine 250 MCG/1 ML Amp IM PRN (21:36)
[2019-11-09] MEDS ORDERED: Tranexamic Acid 1,000 MG in Sodium Chloride 0.9% 100 ML IV PRN (21:36)
[2019-11-09] MEDS ORDERED: Sodium Chloride 0.9% 2.5 ML Syringe FLUSH PRN (21:36)
[2019-11-09] MEDS ORDERED: Methylergonovine 0.2 MG/1 ML Amp IM PRN (21:36)
[2019-11-09] MEDS ORDERED: Sodium Chloride 0.9% 10 ML SDV IV PRN (21:36)
[2019-11-09] MEDS ORDERED: Oxytocin/0.9 % Sodium Chloride 30 UNIT/500 ML BAG IV SCH (21:45)
[2019-11-09] MEDS ORDERED: Ampicillin 2 GM in Sodium Chloride 0.9% 100 ML IV ONE (22:00)
[2019-11-09] MEDS: Lactated Ringers 1,000 ML IV SCH (22:14)
[2019-11-09] MEDS: Oxytocin/0.9 % Sodium Chloride 30 UNIT/500 ML BAG IV SCH (23:03)
[2019-11-09] MEDS ORDERED: Ampicillin 1 GM in Sodium Chloride 0.9% 50 ML IV SCH (23:45)
[2019-11-10] MEDS: Ampicillin 1 GM in Sodium Chloride 0.9% 50 ML IV SCH ×5 (05:59→21:58)
[2019-11-10] MEDS ORDERED: Prenatal Multivitamin and Multimineral with Iron Tab PO SCH (09:00)
[2019-11-10] MEDS: Lactated Ringers 1,000 ML IV SCH (12:25)
[2019-11-10] MEDS: Butorphanol 1 MG/ML SDV IVPUSH PRN ×3 (16:17→20:43)
[2019-11-11] MEDS: Oxytocin/0.9 % Sodium Chloride 30 UNIT/500 ML BAG IV SCH (00:49)
[2019-11-11] MEDS: Lactated Ringers 1,000 ML IV SCH (00:50)
[2019-11-11] MEDS: Ampicillin 1 GM in Sodium Chloride 0.9% 50 ML IV SCH (01:56)
[2019-11-11] MEDS ORDERED: Misoprostol 200 MCG Tab RECTAL PRN (04:14)
[2019-11-11] MEDS ORDERED: Tranexamic Acid 1,000 MG in Sodium Chloride 0.9% 100 ML IV PRN (04:14)
[2019-11-11] MEDS ORDERED: Acetaminophen 500 MG Tab PO PRN ×2 (04:14)
[2019-11-11] MEDS ORDERED: Ibuprofen 400 MG Tab PO PRN (04:14)
[2019-11-11] MEDS ORDERED: oxyCODONE 5 MG Tab PO PRN (04:14)
[2019-11-11] MEDS ORDERED: Lanolin 100% Cream 7 GM Tube TOP PRN (04:14)
[2019-11-11] MEDS ORDERED: Carboprost Tromethamine 250 MCG/1 ML Amp IM PRN (04:14)
[2019-11-11] MEDS ORDERED: Benzocaine/Menthol 20%-0.5% Spray 78 GM Cannister TOP PRN (04:14)
[2019-11-11] MEDS ORDERED: Witch Hazel Medicated Pads 40/Jar TOP PRN (04:14)
[2019-11-11] MEDS ORDERED: Bisacodyl 10 MG Supp RECTAL PRN (04:14)
[2019-11-11] MEDS ORDERED: Ibuprofen 800 MG Tab PO PRN (04:14)
[2019-11-11] MEDS ORDERED: Docusate Sodium 100 MG Cap PO PRN (04:14)
--- NOTE | 2019-11-11 04:19 | PCM.DEL ---
L & D Note - General Info Date of Service: 11/11/19 Mother's Due Date: 11/21/19 - Delivery Note Labor: Induced by Oxytocin (after PROM) Delivery Outcome: Livebirth Infant Delivery Method: Spontaneous Vaginal Delivery-Single Presentation: Left Occiput Anterior (RAMIRO) Nuchal Cord: Reduced Prep: Other Anesthesia Type: None Anesthetic: Lidocaine (Xylocaine) 0.5% Plain Local Anesthetic Volume: 5cc Amniotic Fluid Description: Clear Episiotomy Type: None Laceration: 2nd Degree Suture type: Vicryl Suture size: 3-0 Placenta: Intact, Spontaneous Cord: 3 Vessels Estimated Blood Loss: 800 (given TXA and methergine) Resuscitation Needed: No [place]: Suctioned Score 1 min: 7 Score 5 min: 9 Delivery Comments (Free Text/Narrative):: Liveborn male 7/9 weight 3170 grams, moderate hemorrhage resolved with fundal massage, methergine TXA - General Info Date of Service: 11/11/19 - Patient Data Weight - Most Recent: 97.522 kg Lab Results Last 24 Hours: Laboratory Results - last 24 hr 11/09/19 Range/Units 22:13 Blood Type A POSITIVE Antibody Screen NEGATIVE Crossmatch See Detail Med Orders - Current: Current Medications Discontinued Medications Butorphanol Tartrate (Stadol) 1 mg IVPUSH Q1H PRN PRN Reason: Pain Last Admin: 11/10/19 20:43 Dose: 1 mg Carboprost Tromethamine (Hemabate Ds) 250 mcg IM ASDIRECTED PRN PRN Reason: Post Hemorrhage Ampicillin Sodium 2 gm/ Sodium (Chloride) 100 mls @ 200 mls/hr IV ONETIME ONE Stop: 11/09/19 22:29 Last Admin: 11/09/19 22:20 Dose: 200 mls/hr Lactated Ringer's (Ringers, Lactated) 1,000 mls @ 150 mls/hr IV ASDIRECTED KATIUSKA Last Admin: 11/11/19 00:50 Dose: 125 mls/hr Oxytocin/Sodium Chloride (Oxytocin 30 Unit/500 Ml-Ns) 30 unit in 500 mls @ 500 mls/hr IV TITRATE KATIUSKA Oxytocin/Sodium Chloride (Oxytocin 30 Unit/500 Ml-Ns) 30 unit in 500 mls @ 2 mls/hr IV TITRATE KATIUSKA; Protocol Last Admin: 11/11/19 00:49 Dose: 30 munits/min, 30 mls/hr Tranexamic Acid 1,000 mg/ (Sodium Chloride) 110 mls @ 660 mls/hr IV ONETIME PRN PRN Reason: Bleeding Last Admin: 11/11/19 03:55 Dose: 660 mls/hr Ampicillin Sodium 1 gm/ Sodium (Chloride) 50 mls @ 100 mls/hr IV Q4H [facility] Last Admin: 11/10/19 02:02 Dose: 100 mls/hr Ampicillin Sodium 1 gm/ Sodium (Chloride) 50 mls @ 100 mls/hr IV Q4H [facility] Last Admin: 11/11/19 01:56 Dose: 100 mls/hr Lidocaine HCl (Xylocaine 1%) 50 ml INJECT ONETIME PRN PRN Reason: Laceration repair Last Admin: 11/11/19 03:57 Dose: 50 ml Methylergonovine Maleate (Methergine) 0.2 mg IM ASDIRECTED PRN PRN Reason: Post Hemorrhage Last Admin: 11/11/19 03:57 Dose: 0.2 mg Misoprostol (Cytotec) 200 mcg PO ONETIME PRN PRN Reason: Post Hemorrhage Nalbuphine HCl (Nubain) 10 mg IVPUSH Q1H PRN PRN Reason: Pain (severe 7-10) Prenat Multivit/[place]/Iron/Folic Ac ( Mtr) 1 each PO DAILY [facility] Last Admin: 11/10/19 10:06 Dose: 1 each Sodium Chloride (Saline Flush) 10 ml FLUSH ASDIRECTED PRN PRN Reason: Keep Vein Open Sodium Chloride (Saline Flush) 2.5 ml FLUSH ASDIRECTED PRN PRN Reason: Keep Vein Open Sodium Chloride (Normal Saline) 10 ml IV ASDIRECTED PRN PRN Reason: IV Use Sterile Water (Sterile Water For Irrigation) 1,000 ml IRR ASDIRECTED PRN PRN Reason: delivery Terbutaline Sulfate (Brethine) 0.25 mg SUBCUT ASDIRECTED PRN PRN Reason: Tacysystole - Problem List & Annotations (1) Vaginal delivery SNOMED Code(s): 881624120 Code(s): O80 - ENCOUNTER FOR FULL-TERM UNCOMPLICATED DELIVERY Status: Acute Current Visit: Yes - Problem List Review Problem List Initiated/Reviewed/Updated: Yes - My Orders Last 24 Hours: My Active Orders 11/11/19 03:40 BLOOD GAS ARTERIAL UMBILICAL [BG] Urgent BLOOD GAS VENOUS UMBILICAL [BG] Urgent 11/11/19 04:14 Acetaminophen [Tylenol Extra Strength] 1,000 mg PO Q4H PRN Acetaminophen [Tylenol Extra Strength] 500 mg PO Q4H PRN Benzocaine/Menthol [Dermoplast Pain Relief 20%-0.5% [place]] 78 gm TOP ASDIRECTED PRN Carboprost Tromethamine [Hemabate DS] 250 mcg IM ASDIRECTED PRN Docusate Sodium [Colace] 100 mg PO BID PRN Ibuprofen [Motrin] 400 mg PO Q4H PRN Ibuprofen [Motrin] 800 mg PO Q6H PRN Lanolin [Lansinoh HPA] See Dose Instructions TOP ASDIRECTED PRN Tranexamic Acid [Cyklokapron] 1,000 mg Sodium Chloride 0.9% [Normal Saline] 100 ml IV ONETIME [place] [Tucks] 1 pad TOP ASDIRECTED PRN bisacodyL [Dulcolax] 10 mg RECTAL ONETIME PRN miSOPROStoL [Cytotec] 400 mcg RECTAL ONETIME PRN oxyCODONE 5 mg PO Q2H PRN Resuscitation Status Routine 11/11/19 04:15 Patient Status [ADT] Routine May Shower [RC] ASDIRECTED Up ad [place] [RC] ASDIRECTED Vital Signs [RC] PER UNIT ROUTINE Assess Lochia [WOMSER] Per Unit Routine Assess Uterine Involution [WOMSER] Per Unit Routine Perineal Care [OM.PC] Per Unit Routine Peripheral IV Discontinue [OM.PC] Routine 11/12/19 05:11 HEMOGLOBIN/HEMATOCRIT,HH [HEME] Timed
[2019-11-11] MEDS ORDERED: Oxytocin/0.9 % Sodium Chloride 30 UNIT/500 ML BAG ONE (04:21)
--- NOTE | 2019-11-11 06:57 | OR ---
SURGEON: Paola Burnett M.D. DATE OF PROCEDURE: 11/11/2019 PREOPERATIVE DIAGNOSES: 38-4/7-week intrauterine , premature rupture of membranes with induction, hepatitis B carrier, group B strep positive. POSTOPERATIVE DIAGNOSES: 38-4/7-week intrauterine , premature rupture of membranes with induction, hepatitis B carrier, group B strep positive. PROCEDURE: Pitocin induction of labor, term spontaneous vaginal delivery, repair of second- degree laceration. PRIMARY SURGEON: Paola Burnett M.D. ANESTHESIA: Local. ESTIMATED BLOOD LOSS: 800 mL. FINDINGS: Liveborn male, score 7 and 9, weighing 3170 g. Nuchal cord x1 reduced. Placenta spontaneous, Schultze intact with 3 vessels. Second-degree perineal laceration, repaired. COMPLICATIONS: None known. DISPOSITION: Mother and baby are in LDR in good condition. BRIEF HISTORY: This is a 24-year-old female, , presents at 38-2/7 weeks' gestation with spontaneous rupture of membranes, clear fluid noted, and she was known to be hepatitis B carrier status. Nursery was notified. She is a group B strep carrier. She was started on ampicillin. She was started on Pitocin, and after she was 5 to 6 cm dilated, rupture of membranes was repeated with clear fluid noted. She declined regional analgesia. She received IV stadol over a prolonged period of time. She progressed to complete. DESCRIPTION OF PROCEDURE: With the patient in dorsal lithotomy position, the patient pushed over 1 hour time period to a 5+ station, at which time the head was delivered spontaneously and atraumatically over the perineum with support. Nuchal cord was reduced. Anterior and posterior shoulders were delivered without difficulty, with subsequent delivery of the 's body. The infant was then handed to the mother in the presence of the nurse attending delivery. The was a liveborn male, score 7 and 9, weighing 3170 g. Cord was doubly clamped and cut, and cord blood was collected for cord ABGs as well as routine cord blood sampling. Pitocin was initiated after delivery of the infant to assist with delivery of the placenta, which was delivered spontaneously. Schultze intact with 3 vessels. Upon inspection of the pelvis and perineum, there was a second-degree perineal laceration. There were no periurethral, vaginal sidewall, cervical, rectal or other lacerations. 10 mL of 1% lidocaine were injected into the skin and perineum for repair. The perineal laceration was repaired with a 3-0 Vicryl with a running locked suture for the vaginal mucosa, deep running suture of the same for the perineum and a subcuticular suture for the skin. Brisk bleeding was noted. Aggressive fundal massage was performed. The patient received Methergine IM and there was continued bleeding. Therefore, tranexamic acid 1000 mg was given IV. Almost immediately, the bleeding improved. Fundal massage was continued until bleeding was minimal. Cervix was examined and there were no lacerations. There was no missing vaginal laceration. The placenta was intact. Bleeding was improved. Intermittent fundal massage was continued with resolution of the heavy bleeding down to a normal lochia. Final sponge, needle, and instrument counts were correct. There were no known complications. Mother and baby are in LDR in good condition. FABI / CASTRO /[id number]
--- NOTE | 2019-11-12 09:02 | PCM.PNPP ---
- General Info Date of Service: 11/12/19 Subjective Update: 24 yo P1 s/p PPD1 denies any complains Yet to establish Normal lochia Functional Status: Reports: Pain Controlled, Tolerating Diet, Ambulating, Urinating - Review of Systems General: Reports: No Symptoms HEENT: Reports: No Symptoms Pulmonary: Reports: No Symptoms Cardiovascular: Reports: No Symptoms Gastrointestinal: Reports: No Symptoms Genitourinary: Reports: No Symptoms Musculoskeletal: Reports: No Symptoms Skin: Reports: No Symptoms Neurological: Reports: No Symptoms Psychiatric: Reports: No Symptoms - General Info Date of Service: 11/12/19 - Patient Data Vital Signs - Most Recent: Last Vital Signs Temp 36.6 C 11/11/19 20:00 Pulse 79 11/12/19 06:50 Resp 17 11/12/19 06:50 BP 104/68 11/12/19 06:50 Pulse Ox 100 11/12/19 06:50 Weight - Most Recent: 97.522 kg Lab Results - Last 24 Hours: Laboratory Results - last 24 hr 11/12/19 Range/Units 04:53 Hgb 9.2 L (12.0-16.0) g/dL Hct 28.1 L (36.0-46.0) % Med Orders - Current: Current Medications Acetaminophen (Tylenol Extra Strength) 500 mg PO Q4H PRN PRN Reason: Pain Acetaminophen (Tylenol Extra Strength) 1,000 mg PO Q4H PRN PRN Reason: Pain Benzocaine/Menthol (Dermoplast Pain Relief 20%-0.5% [place]) 78 gm TOP ASDIRECTED PRN PRN Reason: Perineal Comfort Measure Last Admin: 11/12/19 08:36 Dose: 1 can Bisacodyl (Dulcolax) 10 mg RECTAL ONETIME PRN PRN Reason: Constipation Carboprost Tromethamine (Hemabate Ds) 250 mcg IM ASDIRECTED PRN PRN Reason: Excessive vaginal bleeding Docusate Sodium (Colace) 100 mg PO BID PRN PRN Reason: Constipation Emollient Ointment (Lansinoh Hpa) 0 gm TOP ASDIRECTED PRN PRN Reason: Sore Nipples Tranexamic Acid 1,000 mg/ (Sodium Chloride) 110 mls @ 660 mls/hr IV ONETIME PRN PRN Reason: Bleeding Ibuprofen (Motrin) 400 mg PO Q4H PRN PRN Reason: Pain Ibuprofen (Motrin) 800 mg PO Q6H PRN PRN Reason: Pain Misoprostol (Cytotec) 400 mcg RECTAL ONETIME PRN PRN Reason: excessive vaginal bleeding Oxycodone HCl (Oxycodone) 5 mg PO Q2H PRN PRN Reason: Pain [place] (Tucks) 1 pad TOP ASDIRECTED PRN PRN Reason: comfort care Last Admin: 11/12/19 08:37 Dose: 1 tub Discontinued Medications Butorphanol Tartrate (Stadol) 1 mg IVPUSH Q1H PRN PRN Reason: Pain Last Admin: 11/10/19 20:43 Dose: 1 mg Carboprost Tromethamine (Hemabate Ds) 250 mcg IM ASDIRECTED PRN PRN Reason: Post Hemorrhage Ampicillin Sodium 2 gm/ Sodium (Chloride) 100 mls @ 200 mls/hr IV ONETIME ONE Stop: 11/09/19 22:29 Last Admin: 11/09/19 22:20 Dose: 200 mls/hr Lactated Ringer's (Ringers, Lactated) 1,000 mls @ 150 mls/hr IV ASDIRECTED [facility] Last Admin: 11/11/19 00:50 Dose: 125 mls/hr Oxytocin/Sodium Chloride (Oxytocin 30 Unit/500 Ml-Ns) 30 unit in 500 mls @ 500 mls/hr IV TITRATE [facility] Last Admin: 11/11/19 04:22 Dose: 500 mls/hr Oxytocin/Sodium Chloride (Oxytocin 30 Unit/500 Ml-Ns) 30 unit in 500 mls @ 2 mls/hr IV TITRATE [facility]; Protocol Last Admin: 11/11/19 00:49 Dose: 30 munits/min, 30 mls/hr Tranexamic Acid 1,000 mg/ (Sodium Chloride) 110 mls @ 660 mls/hr IV ONETIME PRN PRN Reason: Bleeding Last Admin: 11/11/19 03:55 Dose: 660 mls/hr Ampicillin Sodium 1 gm/ Sodium (Chloride) 50 mls @ 100 mls/hr IV Q4H [facility] Last Admin: 11/10/19 02:02 Dose: 100 mls/hr Ampicillin Sodium 1 gm/ Sodium (Chloride) 50 mls @ 100 mls/hr IV Q4H [facility] Last Admin: 11/11/19 01:56 Dose: 100 mls/hr Oxytocin/Sodium Chloride (Oxytocin 30 Unit/500 Ml-Ns) Confirm Administered Dose 30 unit in 500 mls @ as directed .ROUTE .[employer] ONE Stop: 11/11/19 04:22 Lidocaine HCl (Xylocaine 1%) 50 ml INJECT ONETIME PRN PRN Reason: Laceration repair Last Admin: 11/11/19 03:57 Dose: 50 ml Methylergonovine Maleate (Methergine) 0.2 mg IM ASDIRECTED PRN PRN Reason: Post Hemorrhage Last Admin: 11/11/19 03:57 Dose: 0.2 mg Misoprostol (Cytotec) 200 mcg PO ONETIME PRN PRN Reason: Post Hemorrhage Nalbuphine HCl (Nubain) 10 mg IVPUSH Q1H PRN PRN Reason: Pain (severe 7-10) Prenat Multivit/[place]/Iron/Folic Ac ( Mtr) 1 each PO DAILY [facility]KA Last Admin: 11/10/19 10:06 Dose: 1 each Sodium Chloride (Saline Flush) 10 ml FLUSH ASDIRECTED PRN PRN Reason: Keep Vein Open Sodium Chloride (Saline Flush) 2.5 ml FLUSH ASDIRECTED PRN PRN Reason: Keep Vein Open Sodium Chloride (Normal Saline) 10 ml IV ASDIRECTED PRN PRN Reason: IV Use Sterile Water (Sterile Water For Irrigation) 1,000 ml IRR ASDIRECTED PRN PRN Reason: delivery Terbutaline Sulfate (Brethine) 0.25 mg SUBCUT ASDIRECTED PRN PRN Reason: Tacysystole Tranexamic Acid (Cyklokapron) Confirm Administered Dose 1,000 mg .ROUTE .[employer] ONE Stop: 11/11/19 06:47 - Infant Interaction Support Person: Mother, Significant Other - Recovery Exam Fundal Tone: Firm Fundal Level: 2 Fingerbreadths Below Umbilicus Fundal Placement: Midline Lochia Amount: Scant Lochia Color: Rubra/Red Episiotomy/Laceration: Approximated Bladder Status: Voiding Urinary Elimination: Voided - Exam General: Alert, Oriented HEENT: Pupils Equal Neck: Supple Lungs: Clear to Auscultation Cardiovascular: Regular Rate, Regular Rhythm GI/Abdominal Exam: Normal Bowel Sounds Extremities: Normal Inspection Neurological: No New Focal Deficit Psy/Mental Status: Alert - Problem List & Annotations (1) Vaginal delivery SNOMED Code(s): 738759620 Code(s): O80 - ENCOUNTER FOR FULL-TERM UNCOMPLICATED DELIVERY Status: Acute Current Visit: Yes - Problem List Review Problem List Initiated/Reviewed/Updated: Yes - Assessment Assessment:: 24yo P1 s/p PPD 1 Normal lochia Yet to establish - Plan Plan:: Routine Discharge home today
[2019-11-12 09:14] VITALS: BP 118/67; PULSE 89
== END 2019-11-12 11:45 | disposition home or self-care (01) | DRG 806 ==
LOC: MW.NPGPWH 12:17 → MW.OB 21:00 → OBSVTOIN 11-11 03:36 → MW.OB 11-11 06:45
PROVIDERS: ADMIT Obstetrics & Gynecology; ATTEND Obstetrics & Gynecology
PROC: 10E0XZZ Delivery of Products of Conception, External Approach (ICD-10-PCS; principal; 2019-11-11)
PROC: 0KQM0ZZ Repair Perineum Muscle, Open Approach (ICD-10-PCS; 2019-11-11)
PROC: 10907ZC Drainage of Amniotic Fluid, Therapeutic from Products of Conception, Via Natural or Artificial Opening (ICD-10-PCS; 2019-11-11)
PROC: 3E033VJ Introduction of Other Hormone into Peripheral Vein, Percutaneous Approach (ICD-10-PCS; 2019-11-11)
DX: O42.92 Full-term premature rupture of membranes, unspecified as to length of time between rupture and onset of labor (principal); O72.1 Other immediate postpartum hemorrhage; Z37.0 Single live birth; O36.82 Fetal anemia and thrombocytopenia; O69.81X0 Labor and delivery complicated by cord around neck, without compression, not applicable or unspecified; O70.1 Second degree perineal laceration during delivery; Z3A.38 38 weeks gestation of pregnancy
CPT/HCPCS: 36415; 59025; 59409; 82803; 85014; 85018; 85025; 85027; 86592; 86593; 86850; 86900; 86901; 86920; 86921; 86922; A9270-GY; J0290; J0595; J2001; J2210; J2590; J7050; J7120